=== PATIENT | male | born 1980 | race Caucasian/White ===

== ENCOUNTER → 2019-01-05 | Outpatient (CLI) | payer BC ==
--- NOTE | 2019-01-05 11:15 | MR ---
EXAMINATION TYPE: MR knee RT wo con DATE OF EXAM: 01/05/2019 COMPARISON: None HISTORY: Rt knee pain/lateral aspect x 6 weeks TECHNIQUE: Multiplanar, multisequence imaging of the right knee is performed without IV contrast. FINDINGS: MEDIAL MENISCUS: Some linear increased signal seen on coronal image 16 may extend to the articular mota rface, linear increased signal within the body of the medial meniscus on sagittal image 7 extends to the undersurface compatible with tear LATERAL MENISCUS: Anterior and posterior horns are intact without tear. CRUCIATE LIGAMENTS: The anterior and posterior cruciate ligaments are intact and unremarkable. COLLATERAL LIGAMENTS: The medial collateral ligament and lateral collateral ligament complex are inta ct and unremarkable. EXTENSOR MECHANISM: Visualized quadriceps and patellar tendons are intact. EFFUSION: No significant suprapatellar joint effusion. POPLITEAL CYST: No popliteal/sage cyst. TRICOMPARTMENT SPACES: Maintained CARTILAGE: Intact BONE MARROW SIGNAL: No focal abnormal marrow signal is appreciated. OTHER: Fluid signal at the origin of the gastrocnemius tendon medial belly could represent ganglion cyst or possibly are shallow tear or strain. Small amount of T2 intensity present at the level of the medial superior quadriceps tendon insertion may represent strain, partial tear IMPRESSION: Findings may represent tear of the medial meniscus. Additional findings above.
== END | disposition home or self-care (01) ==
LOC: RADMRIMAIN 08:48
PROVIDERS: ATTEND Internal Medicine
DX: M25.561 Pain in right knee (principal)

== ENCOUNTER → 2019-08-04 | Outpatient (CLI) | payer BC ==
--- NOTE | 2019-08-04 19:32 | MR ---
EXAMINATION TYPE: MR lumbar spine wo con DATE OF EXAM: 08/04/2019 COMPARISON: NONE HISTORY: Low back pain into rt leg TECHNIQUE: T1 and T2 axial and sagittal images of the lumbar spine are submitted. FINDINGS: There is no abnormal signal seen within the visualized spinal cord or paraspinal soft tissu es. At L1-2 there is significant degenerative disc disease but no canal stenosis or disc herniation. No f oraminal encroachment. Discogenic marrow changes noted. At L2-3 there is severe degenerative disc disease but no disc herniation or canal stenosis. No forami nal encroachment. At L3-4 there is severe degenerative disc disease with discogenic marrow changes. Mild circumferentia l disc bulging but no canal stenosis or foraminal encroachment. At L4-5 there is severe degenerative disc disease. There is broad-based disc bulging which results in flattening of the thecal sac. Borderline canal stenosis with mild bilateral foraminal encroachment. Discogenic marrow changes noted. At L5-S1 there is degenerative disc disease with facet arthropathy. No disc herniation or canal steno sis. Hypertrophic changes and circumferential disc bulging greater laterally to left resulting in mil d left foraminal encroachment. IMPRESSION: 1. Multilevel severe degenerative disc disease. 2. Borderline canal stenosis L4-L5 with mild bilateral foraminal encroachment due to disc bulging. 3. Left lateral disc bulging L5-S1 with hypertrophic changes facets result in mild left foraminal enc roachment.
== END ==
LOC: RADMRIMAIN 17:58
PROVIDERS: ATTEND Internal Medicine
DX: M48.061 Spinal stenosis, lumbar region without neurogenic claudication (principal); M51.26 Other intervertebral disc displacement, lumbar region; M51.36 Other intervertebral disc degeneration, lumbar region; M51.27 Other intervertebral disc displacement, lumbosacral region
CPT/HCPCS: 72148